=== PATIENT | female | born 1945 ===

== ENCOUNTER 2019-08-16 12:37 | Outpatient (CLI) | payer MEDICARE ==
[~2019-08-16] VITALS: Ht 149.9 cm; Wt 54.4 kg
[2019-08-16 13:00] LABS: ABG BASE EXCESS -2.7 mmol/L (-2.0-3.0); ABG HCO3 21.1 mmol/L (22.0-26.0); ABG OXYGEN SATURATION 95.6 % (95-98); ABG PCO2 (T) 34.3 mmHg (35.0-45.0); ABG PH (T) 7.407 (7.350-7.450); ABG PO2 (T) 72.3 mmHg (83-108); ALLEN'S TEST Positive; FCOHb 0.7 % (0.5-1.5); FO2Hb 94.9 % (94-100); TOTAL HEMOGLOBIN 15.6 G/dl (12.0-16.0)
[2019-08-16] MEDS ORDERED: albuterol 2.5 MG/3 ML nebule NEB PRN (13:15)
== END 2019-08-16 23:59 | disposition home or self-care (01) ==
LOC: RT 12:37
PROVIDERS: ATTEND Internal Medicine Pulmonary Disease
DX: R05 Cough (principal); R06.89 Other abnormalities of breathing; Z79.899 Other long term (current) drug therapy; F17.210 Nicotine dependence, cigarettes, uncomplicated
CPT/HCPCS: 36600; 82803; 85018; 94060; 94727; 94729; 94760